=== PATIENT | female | born 1990 | race Caucasian/White ===

== ENCOUNTER 2018-04-28 08:06 | Emergency (ER) | END 2018-04-28 09:56 | disposition home or self-care (01) ==

== ENCOUNTER 2018-07-11 14:26 | Emergency (ER) | payer SELFPAY ==
[~2018-07-11 14:26] MED LIST: CEPH-443 PO; IBUP-1542 PO
[2018-07-11] MEDS ORDERED: CEPH-443 PO (15:59)
[2018-07-11] MEDS ORDERED: SULF1TAB31 PO (15:59)
== END 2018-07-11 14:57 | disposition left against medical advice (07) ==
LOC: E/R 14:26
DX: Z53.21 Procedure and treatment not carried out due to patient leaving prior to being seen by health care provider (principal)

== ENCOUNTER 2018-07-11 15:18 | Emergency (ER) | payer MEDICAID ==
[~2018-07-11] VITALS: Wt 48.0 kg
[2018-07-11 15:21] VITALS: BP 122/79; PULSE 110; RESP 18
[2018-07-11] MEDS ORDERED: SULF1TAB31 PO (15:59)
[2018-07-11] MEDS ORDERED: CEPH-443 PO (15:59)
[2018-07-11] MEDS ORDERED: CEPHALEXIN 500 MG CAP PO ONE (16:00)
[2018-07-11] MEDS ORDERED: TRIMETHOPRIM/SULFAMETHOX (DS) TAB PO ONE (16:00)
--- NOTE | 2018-07-11 16:01 | ERD ---
ER Documentation Chief Complaint Chief Complaint RASH HPI 27-year-old female presents with spreading skin lesions over the last several days. Started in her hands her nails and now she has lesions on her face, chin and wrist. She denies any fevers, vomiting, shortness of breath or chest pain. ROS All systems reviewed and are negative except as per history of present illness. Medications Home Meds Active Scripts Cephalexin* (Keflex*) 500 Mg Capsule, 500 MG PO QID for 7 Days, CAP Prov:NILAM RAMIRES MD 07/11/18 Sulfamethoxazole/Trimethoprim* (Bactrim Ds* Tablet) 1 Each Tablet, 1 TAB PO BID for 7 Days, #14 TAB Prov:NILAM RAMIRES MD 07/11/18 Cephalexin* (Keflex*) 500 Mg Capsule, 500 MG PO QID for 10 Days, CAP Prov:NILAM RAMIRES MD 04/28/18 Ibuprofen* (Motrin*) 600 Mg Tab, 600 MG PO Q6, #15 TAB Prov:NILAM RAMIRES MD 04/28/18 Allergies Allergies: Coded Allergies: No Known Allergy (Unverified , 07/11/18) PMhx/Soc Medical and Surgical Hx: pt denies Medical Hx, pt denies Surgical Hx Hx Alcohol Use: Yes Hx Substance Use: Yes (MArijuana,heroin,cocaine) Hx Tobacco Use: Yes Smoking Status: Never smoker FmHx Family History: No diabetes, No coronary disease, No other Physical Exam Vitals Vital Signs Date Temp Pulse Resp B/P (MAP) Pulse Ox O2 O2 Flow FiO2 Time Delivery Rate 07/11/18 99.2 110 18 122/79 99 15:21 (93) Physical Exam Const: No acute distress Head: Atraumatic Eyes: Normal Conjunctiva ENT: Normal External Ears, Nose and Mouth. Neck: Full range of motion. No meningismus. Resp: Clear to auscultation bilaterally Cardio: Regular rate and rhythm, no murmurs Abd: Soft, non tender, non distended. Normal bowel sounds Skin: No petechiae or rashes. Scattered open lesions on forehead, chin and fingers at the base of the nails. A few areas on the wrist. No induration or streaking. Back: No midline or flank tenderness Ext: No cyanosis, or edema Neur: Awake and alert Psych: Normal Mood and Affect Results 24 hrs Current Medications Medications Dose Sig/Say Start Time Status Last (Trade) Ordered Route PRN Stop Time Admin Dose Reason Admin 1 tab ONCE ONCE 07/11/18 Trimethoprim/ PO 16:00 07/11/18 16:01 Sulfamethoxaz ole (Bactrim (Ds)) Cephalexin 500 mg ONCE ONCE 07/11/18 (Keflex) PO 16:00 07/11/18 16:01 Procedures/MDM Patient presents with signs and symptoms of spreading impetigo immune cellulitis, sepsis, necrotizing fasciitis. She will treated with Bactrim and Keflex, return precautions for worsening redness, fevers, new worsening symptoms. The patient was stable with no new complaints during the ER course. Clinically, there is no current evidence to suggest meningitis, sepsis, acute abdomen, pneumonia, stroke, acute coronary syndrome, pulmonary embolism, aortic dissection or any other emergent condition appearing to require further evaluation or hospitalization. Patient counseled regarding my diagnostic impression and care plan. Prior to discharge all questions answered. Pt agrees with treatment plan and understands strict return precautions. Pt is instructed to follow up with primary care provider within 24-48 hours. Precautionary instructions provided including instructions to return to the ER if not improving or for any worsening or changing symptoms or concerns. Departure Diagnosis: Primary Impression: Impetigo Condition: Stable Patient Instructions: Impetigo Additional Instructions: Recheck for worsening redness, fevers, new worsening symptoms. NILAM RAMIRES MD Jul 11, 2018 16:01
== END 2018-07-11 16:51 | disposition home or self-care (01) ==
LOC: FTE 15:18
DX: L01.00 Impetigo, unspecified (principal); Z87.891 Personal history of nicotine dependence
CPT/HCPCS: Z7502; Z7610; 99283

== ENCOUNTER 2018-09-23 06:38 | Emergency (ER) | payer MEDICAID ==
[~2018-09-23] VITALS: Wt 60.0 kg
[~2018-09-23 06:38] MED LIST changes: +SULF1TAB31 PO
[2018-09-23 06:42] VITALS: BP 140/98; PULSE 112; RESP 20
[2018-09-23] MEDS ORDERED: SODIUM CHLORIDE 0.9% 1L BAG IV* STA (07:09)
[2018-09-23] MEDS ORDERED: ACETAMINOPHEN 500 MG TAB PO STA (07:11)
--- NOTE | 2018-09-23 07:16 | ERD ---
ER Documentation Chief Complaint Chief Complaint left index finger infection for the past few days. no fevers, drainage now HPI This is a 27-year-old homeless female with a history of uncontrolled diabetes type 1, hypothyroidism, hypertension, heroin dependence and methamphetamine dependency presents ED with infection to right index finger that has been developing over the past week. Patient admits to swelling, redness, pain and purulent drainage coming from finger. Admits to painful range of motion. Denies fever, chills, chest pain, shortness breath, trouble breathing, nausea, vomiting, diarrhea, constipation. Patient has not been on her insulin in roughly 1 year. Patient last used heroin and meth yesterday via IV route. ROS All systems reviewed and are negative except as per history of present illness. Medications Home Meds Active Scripts Sulfamethoxazole/Trimethoprim* (Bactrim Ds* Tablet) 1 Each Tablet, 1 TAB PO BID, #14 TAB Prov:NIKO GONZALEZ PA-C 09/23/18 Cephalexin* (Keflex*) 500 Mg Capsule, 500 MG PO QID for 10 Days, CAP Prov:NIKO GONZALEZ PA-C 09/23/18 Cephalexin* (Keflex*) 500 Mg Capsule, 500 MG PO QID for 7 Days, CAP Prov:NILAM RAMIRES MD 07/11/18 Sulfamethoxazole/Trimethoprim* (Bactrim Ds* Tablet) 1 Each Tablet, 1 TAB PO BID for 7 Days, #14 TAB Prov:NILAM RAMIERS MD 07/11/18 Cephalexin* (Keflex*) 500 Mg Capsule, 500 MG PO QID for 10 Days, CAP Prov:NILMA RAMIRES MD 04/28/18 Ibuprofen* (Motrin*) 600 Mg Tab, 600 MG PO Q6, #15 TAB Prov:NILAM RAMIRES MD 04/28/18 Allergies Allergies: Coded Allergies: No Known Allergy (Unverified , 07/11/18) PMhx/Soc Hx Alcohol Use: Yes Hx Substance Use: Yes (MArijuana,heroin,cocaine) Hx Tobacco Use: Yes FmHx Family History: No diabetes Physical Exam Vitals Vital Signs Date Temp Pulse Resp B/P (MAP) Pulse Ox O2 O2 Flow FiO2 Time Delivery Rate 09/23/18 98.7 112 20 140/98 98 06:42 (112) Physical Exam Physical Exam Vitals signs: Reviewed by me. General: Well developed, well nourished, in no acute distress. Patient is awake and alert. Head: Normocephalic, atraumatic. Eyes: Normal conjunctiva, Pupils PERRLA, EOM intact grossly ENT: Pharynx is clear, Moist mucous membranes, external ears, nose and mouth normal Neck: Supple, no masses, lymphadenopathy or JVD Respiratory: Clear to auscultation bilaterally with no wheezing, rhonchi, rales, no distress Cardiovascular: RRR, no murmurs, rubs, or gallops MSK: Upper Extremity -right Skin: There is moderate swelling redness to patient's right second digit, purulent drainage coming from the tip of second right digit Compartments: Soft Motor: Full active range of motion shoulder/elbow/wrist/hand, fingers Sensation: Intact shoulder/pinky/middle finger/thumb web space Bones: Mild tenderness palpation along right second digit, nontender humerus/elbow/forearm/wrist/hand Snuffbox: Nontender Joints: No effusion Pulses/Perfusion: 2+ radial, Capillary refill < 2 seconds Radial ulnar median nerve tested for deficit with no abnormalities Back: No midline tenderness. No flank tenderness Neurologic: Alert and oriented, moving all extremities, normal speech, no focal weakness, no cerebellar signs. Normal mentation Skin: warm and dry, No rash Psych: Normal mood Results 24 hrs Laboratory Tests Test 09/23/18 07:28 POC Beta HCG, Qualitative NEGATIVE Current Medications Medications Dose Sig/Say Start Time Status Last (Trade) Ordered Route PRN Stop Time Admin Dose Reason Admin Sodium 1,800 ml BOLUS OVER 2 09/23/18 DC Chloride HOURS STAT 07:09 (NS) IV* 09/23/18 07:46 1,000 mg ONCE STAT 09/23/18 DC 09/23/18 Acetaminophen PO 07:11 07:32 (Tylenol 09/23/18 07:46 Tab) Procedures/MDM EKG, MONITORS, & DIAGNOSTIC IMAGING: EKG read by halle: Rate/Rhythm: Regular rate and rhythm at a rate of 96 Intervals: Normal Impression: No evidence of ischemia or arrhythmia ER COURSE: The patient was stable throughout ED course. I kept the patient and/or family informed of laboratory and diagnostic imaging results throughout the emergency room course. The patient was promptly evaluated and a treatment plan was devised based on H&P and other data. This plan was discussed with the patient who agreed and had no further questions or concerns prior to discharge. MEDICAL DECISION MAKING: This is a 27-year-old female with a history of uncontrolled diabetes type 1, hypothyroidism, hypertension, heroin dependence and methamphetamine dependency presents ED with infection to right index finger that has been developing over the past week. Initially I wanted to initiate sepsis protocol and give patient IV fluids given her history of not taking insulin for the past year and with the infection of the right second digit. Patient has refused all treatment in the emergency department. The patient has made the decision to leave this Emergency Department and any ongoing care against the advice of the emergency physician. The patient has been informed of and verbalized understanding of the inherent risks of this decision, including , disability and loss of finger. The patient explained to me the reason for wanting to sign out against medical advice which was that she just wanted oral antibiotics. I made the decision to send patient home with oral antibiotics although I advised her to stay to have a full workup. The patient has the capacity to make this decision and accepts the responsibility of leaving at this time. The patient and all necessary parties have been advised that the patient may return at any time for further evaluation or treatment. The patient's condition at time of discharge is stable. Disclaimer: Inadvertent spelling and grammatical errors are likely due to EHR/dictation software use and do not reflect on the overall quality of patient care. Also, please note that the electronic time recorded on this note does not necessarily reflect the actual time of the patient encounter. Blood Pressure Assessment: Patient's blood pressure was elevated (>120/80) but appears stable without evidence of hypertension emergency or urgency. The patient was counseled about the risks of hypertension and urged to pursue outpatient monitoring and therapy within a week with their primary care physician. Departure Diagnosis: Primary Impression: Finger infection Condition: Stable Patient Instructions: [place] Form- 1, Paronychia, Sepsis Referrals: [facility] NIKO GONZALEZ PA-C Sep 23, 2018 07:16
[2018-09-23] MEDS ORDERED: SULF1TAB31 PO (07:47)
[2018-09-23] MEDS ORDERED: CEPH-443 PO (07:47)
== END 2018-09-23 08:00 | disposition left against medical advice (07) ==
LOC: FTE 06:38
DX: L08.9 Local infection of the skin and subcutaneous tissue, unspecified (principal); I10 Essential (primary) hypertension; E03.9 Hypothyroidism, unspecified; E10.9 Type 1 diabetes mellitus without complications; Z87.891 Personal history of nicotine dependence
CPT/HCPCS: 81025; 93005; J7030; Z7502; Z7610